=== PATIENT | female | born 1950 | race African-American/Black ===

== ENCOUNTER 2016-10-15 12:59 | Emergency (ER) | payer OTHER ==
[~2016-10-15] VITALS: Ht 160 cm; Wt 64.4 kg
[~2016-10-15 12:59] MED LIST: NORVASC 5 MG TAB5 MG PO; VITAMIN D250000 UNIT PO; XANAX 0.5 MG0.5 MG; ZANTAC 150MG T150 M1
[2016-10-15 13:18] LABS: URINE BILIRUBIN NEGATIVE (Negative); URINE BLOOD NEGATIVE (Negative); URINE COLOR YELLOW; URINE GLUCOSE-RANDOM* NEGATIVE (Negative); URINE KETONES NEGATIVE (Negative); URINE LEUKOCYTES-REFLEX NEGATIVE (Negative); URINE PROTEIN (DIPSTICK) NEGATIVE (Negative); URINE UROBILINOGEN 0.2 E.U./dl (0.2-1.0)
[2016-10-15 13:36] LABS: ABSOLUTE NEUTROPHILS 3.1 thou/uL (1.4-8.2); BASOPHILS 0.6 % (0.0-2.0); EOSINOPHILS 1.9 % (0.0-3.0); HEMATOCRIT 40.9 % (37.0-47.0); HEMOGLOBIN 13.4 gm/dL (12.0-15.0); LYMPHOCYTES 30.3 % (24.0-44.0); MANUAL DIFF NO; MCH 29.1 pg (26.0-34.0); MCHC 32.8 g/dL (28.0-37.0); MCV 88.8 fL (80.0-100.0); MONOCYTES 9.4 % (1.0-8.0); PLATELET COUNT 227 thou/uL (150-400); POLYS 57.8 % (36.0-66.0); RBC 4.61 mil/uL (4.20-5.00); WBC 5.4 thou/uL (4.0-11.0)
[2016-10-15 14:10] LABS: CALCIUM 9.1 mg/dL (8.5-10.1); POTASSIUM 4.2 mmol/L (3.5-5.1)
[2016-10-15 14:15] LABS: TOTAL BILIRUBIN 0.5 mg/dL (<0.1-1.0); TOTAL PROTEIN 8.2 g/dL (6.4-8.2)
[2016-10-15] MEDS ORDERED: NAPROSYN500 MG PO (15:59)
[2016-10-15] MEDS ORDERED: PHENERGAN 25 MG25 M1 PO (15:59)
[2016-10-15] MEDS ORDERED: LIPITOR10 MG PO (16:07)
[2016-10-15] MEDS ORDERED: OXYBUTYNIN 5 MG5 M2 PO (16:07)
[2016-10-15] MEDS ORDERED: HYDROCODONE-AP1 EAC6 PO (16:07)
[2016-10-15] MEDS ORDERED: AMLODIPINE BESY10 MG PO (16:08)
[2016-10-15] MEDS ORDERED: ZANTAC 150MG T150 MG PO (16:08)
[2016-10-15] MEDS ORDERED: PREDNISONE 2.52.5 MG PO (16:09)
[2016-10-15] MEDS ORDERED: ASPIR 8181 MG PO (16:10)
[2016-10-15 16:19] VITALS: BP 161/61
== END 2016-10-15 16:20 | disposition home or self-care (01) ==
LOC: ER 12:59
PROVIDERS: Physician Assistant
DX: R10.32 Left lower quadrant pain (principal); R11.2 Nausea with vomiting, unspecified; J34.89 Other specified disorders of nose and nasal sinuses; I10 Essential (primary) hypertension; M06.9 Rheumatoid arthritis, unspecified; Z88.0 Allergy status to penicillin; Z88.2 Allergy status to sulfonamides